=== PATIENT | female | born 1990 | race Caucasian/White ===

== ENCOUNTER 2019-03-06 22:20 | Emergency (ER) | payer SELFPAY ==
[~2019-03-06] VITALS: Ht 160 cm; Wt 88.5 kg
[2019-03-06 22:42] VITALS: Ht 160 cm; Wt 88.5 kg
[2019-03-07 00:43] VITALS: BP 128/70
== END 2019-03-07 00:43 | disposition home or self-care (01) ==
LOC: ED 22:20
DX: J32.9 Chronic sinusitis, unspecified (principal)

== ENCOUNTER 2019-08-09 23:05 | Emergency (ER) | payer SELFPAY ==
[~2019-08-09] VITALS: Ht 167.6 cm; Wt 87.5 kg
[2019-08-09 23:24] VITALS: Ht 167.6 cm; Wt 87.5 kg
[2019-08-10 04:08] VITALS: BP 114/75
== END 2019-08-10 04:22 | disposition home or self-care (01) ==
LOC: ED 23:05
DX: R51 Headache (principal); H53.149 Visual discomfort, unspecified; H93.19 Tinnitus, unspecified ear
CPT/HCPCS: J1885; J2765

== ENCOUNTER 2019-08-16 21:27 | Inpatient (IN) | payer MEDICAID ==
[~2019-08-16] VITALS: Ht 154.9 cm; Wt 72.6 kg
[2019-08-16 21:54] VITALS: Ht 154.9 cm; Wt 72.6 kg
[2019-08-16 22:44] LABS: CHLORIDE SERUM 102 mmol/L (98-107); CREATININE SERUM 0.7 mg/dL (0.6-1.0); GFR1 > 60 mL/min; GLUCOSE SERUM 110 mg/dL (74-106); POTASSIUM SERUM 3.6 mmol/L (3.5-5.1); SODIUM SERUM 137 mmol/L (136-145)
[2019-08-16 22:47] LABS: BASOPHIL % 0.2 % (0-2); PLATELET COUNT 183 x10^3mcL (130-400)
[2019-08-16 22:52] LABS: ALBUMIN 3.6 g/dL (3.4-5.0); ALKALINE PHOSPHATASE 56 U/L (46-116); ALT/SGPT 17 U/L (14-59); AST/SGOT 9 U/L (15-37); BILIRUBIN TOTAL 0.65 mg/dL (0.20-1.00)
[2019-08-16 22:53] LABS: RED CELL DISTRIBUTION WIDTH 22.8 % (11.5-14.5)
[2019-08-16 22:54] LABS: rbc morphology (normal/abnorm) ABNORMAL (NORMAL)
[2019-08-17 01:22] LABS: microscopic required? NO
[2019-08-17 01:29] LABS: UA SPECIFIC GRAVITY <=1.005 (1.005-1.035); urine erythrocyte NEGATIVE (NEGATIVE)
[2019-08-17 01:31] VITALS: BP 111/33
[2019-08-17 05:18] VITALS: BP 92/56
[2019-08-17 06:36] LABS: CALCIUM 7.4 mg/dL (8.5-10.1); CARBON DIOXIDE 24.1 mmol/L (21-32); CHLORIDE SERUM 106 mmol/L (98-107); CREATININE SERUM 0.8 mg/dL (0.6-1.0); GFR1 > 60 mL/min; GLUCOSE SERUM 92 mg/dL (74-106); POTASSIUM SERUM 3.8 mmol/L (3.5-5.1); SODIUM SERUM 140 mmol/L (136-145)
[2019-08-17 06:53] LABS: BASOPHIL % 0.4 % (0-2); PLATELET COUNT 181 x10^3mcL (130-400)
[2019-08-17 07:21] VITALS: BP 108/54
[2019-08-17 11:43] VITALS: BP 109/55
[2019-08-17 16:36] VITALS: BP 102/45
[2019-08-17 20:51] VITALS: BP 107/51
[2019-08-17 22:23] LABS: BASOPHIL % 0.2 % (0-2); PLATELET COUNT 199 x10^3mcL (130-400)
[2019-08-17 22:27] LABS: RED CELL DISTRIBUTION WIDTH 24.2 % (11.5-14.5)
[2019-08-18 05:20] VITALS: BP 110/56
[2019-08-18 06:23] LABS: CALCIUM 7.9 mg/dL (8.5-10.1); CARBON DIOXIDE 25.8 mmol/L (21-32); CHLORIDE SERUM 106 mmol/L (98-107); CREATININE SERUM 0.7 mg/dL (0.6-1.0); GFR1 > 60 mL/min; GLUCOSE SERUM 90 mg/dL (74-106); MAGNESIUM 2.3 mg/dL (1.8-2.4); PHOSPHOROUS 4.4 mg/dL (2.5-4.9); POTASSIUM SERUM 3.6 mmol/L (3.5-5.1); SODIUM SERUM 140 mmol/L (136-145)
[2019-08-18 06:24] LABS: BASOPHIL % 0.2 % (0-2); PLATELET COUNT 190 x10^3mcL (130-400)
[2019-08-18 07:23] VITALS: BP 90/39
[2019-08-18 07:38] LABS: RED CELL DISTRIBUTION WIDTH 25.1 % (11.5-14.5)
[2019-08-18] MEDS ORDERED: BIA500 PO (14:55)
[2019-08-18] MEDS ORDERED: AMO500 PO (14:55)
[2019-08-18] MEDS ORDERED: FER300 PO (14:56)
[2019-08-18] MEDS ORDERED: PRI20 PO (14:58)
[2019-08-18] MEDS ORDERED: COL100 PO (15:00)
[2019-08-18] MEDS ORDERED: ORTHO-NOVUM 7/71 TA1 PO (15:00)
[2019-08-18 15:35] VITALS: BP 108/52
== END 2019-08-18 16:45 | disposition home or self-care (01) | DRG 241 ==
LOC: ED 21:27 → DU 23:36 → MU 08-18 14:57
PROVIDERS: Emergency Medicine; Internal Medicine Gastroenterology; ADMIT General Practice
PROC: 30233N1 Transfusion of Nonautologous Red Blood Cells into Peripheral Vein, Percutaneous Approach (ICD-10-PCS; principal; 2019-08-17)
PROC: 0DB68ZX Excision of Stomach, Via Natural or Artificial Opening Endoscopic, Diagnostic (ICD-10-PCS; 2019-08-18)
PROC: 0DJD8ZZ Inspection of Lower Intestinal Tract, Via Natural or Artificial Opening Endoscopic (ICD-10-PCS; 2019-08-18 14:00)
PROC: 0DB98ZX Excision of Duodenum, Via Natural or Artificial Opening Endoscopic, Diagnostic (ICD-10-PCS; 2019-08-18 14:00)
DX: K29.60 Other gastritis without bleeding (principal); D62 Acute posthemorrhagic anemia; E83.51 Hypocalcemia; B96.81 Helicobacter pylori [H. pylori] as the cause of diseases classified elsewhere; N92.0 Excessive and frequent menstruation with regular cycle; R73.9 Hyperglycemia, unspecified; E66.9 Obesity, unspecified; Z12.11 Encounter for screening for malignant neoplasm of colon; Z68.33 Body mass index [BMI] 33.0-33.9, adult; Z79.899 Other long term (current) drug therapy
CPT/HCPCS: 43235; 45378; G0378; J1200; J1610; J2250; J2310; J2405; J2916; J3010; J3490; J7030; J7050; P9016; Q0092; Q0163